=== PATIENT | female | born 1990 ===

== ENCOUNTER 2021-06-11 12:55 | Emergency (ER) | payer MEDICAID ==
[~2021-06-11] VITALS: Ht 1684 cm; Wt 54.0 kg
--- NOTE | 2021-06-11 13:14 | NUR ---
at bedside for assessment
[2021-06-11] MEDS ORDERED: LIDOCAINE VISCUS 2% 15 ML UDC MM ONE (13:15)
[2021-06-11] MEDS ORDERED: MAG HYDROX/AL HYDROX/SIMETH 30 ML LIQUID UDC PO ONE (13:15)
[2021-06-11] MEDS ORDERED: ONDANSETRON ODT 4 MG TAB.RAPDIS SL ONE (13:15)
[2021-06-11] MEDS ORDERED: FAMOTIDINE 20 MG TABLET PO ONE (13:15)
[2021-06-11] MEDS ORDERED: FAMOTIDINE 20 MG TABLET ONE (13:27)
[2021-06-11] MEDS ORDERED: ONDANSETRON ODT 4 MG TAB.RAPDIS ONE (13:27)
[2021-06-11] MEDS ORDERED: MAG HYDROX/AL HYDROX/SIMETH 30 ML LIQUID UDC ONE (13:27)
[2021-06-11] MEDS ORDERED: LIDOCAINE VISCUS 2% 15 ML UDC ONE (13:28)
--- NOTE | 2021-06-11 13:32 | NUR ---
urine sent to lab at this time
[2021-06-11 13:38] LABS: *BILIRUBIN,URIN NEGATIVE (NEGATIVE); *BLOOD, URINE NEGATIVE (NEGATIVE); *CLARITY,URINE CLEAR (CLEAR); *COLOR,URINE YELLOW (YELLOW); *KETONES,URINE NEGATIVE (NEGATIVE); *UROBILINOGEN,URINE 0.2 E.U./dl (NORMAL); LEUKOCYTE ESTERASE ,URINE NEGATIVE (NEGATIVE); NITRITE, URINE NEGATIVE (NEGATIVE); UGLUCOSE NEGATIVE (NEGATIVE)
[2021-06-11 13:41] LABS: HEMATOCRIT 38.3 % (31.2-41.9); MEAN CORPUSCULAR HEMOGLOBIN 31.1 uug (24.7-32.8); MEAN CORPUSCULAR VOLUME 91.8 fL (75.5-95.3); PLATELET COUNT (AUTO) 306 K/uL (179-408)
[2021-06-11 13:43] LABS: MAGNESIUM 1.8 mg/dL (1.8-2.4); PHOSPHOROUS 2.7 mg/dL (2.5-4.9)
[2021-06-11 13:45] LABS: BILIRUBIN,DIRECT 0.2 mg/dL (0.0-0.2); BILIRUBIN,TOTAL 0.5 mg/dL (0.2-1.0); CREATININE 0.7 mg/dL (0.6-1.3); POTASSIUM 4.5 mmol/L (3.5-5.1); TOTAL PROTEIN, SERUM 7.2 g/dL (6.4-8.2)
[2021-06-11 13:46] LABS: ETHANOL < 3 MG/DL (0-0)
[2021-06-11 13:49] LABS: *URINE HCG, QUAL NEG (NEGATIVE)
[2021-06-11 13:50] LABS: *AMPHETAMINE, URINE NEGATIVE (NEGATIVE); *CANNABINOID, URINE POSITIVE (NEGATIVE); *COCCAINE, URINE NEGATIVE (NEGATIVE); *OPIATE, URINE NEGATIVE (NEGATIVE); *PHENCYCLIDINE SCREEN,URINE NEGATIVE (NEGATIVE)
[2021-06-11] MEDS ORDERED: OMEP40CA21 PO (15:35)
[2021-06-11] MEDS ORDERED: FAMO40TA7 PO (15:35)
[2021-06-11] MEDS ORDERED: ONDA4TAB11 PO (15:35)
--- NOTE | 2021-06-11 15:53 | NUR ---
Patient discharged to home in stable condition. Patient states she feels better, dinner tray given. Written and verbal after care instructions given. Patient verbalizes understanding of instructions. Stressed follow up or return to ER for worsening s/s.
[2021-06-11 16:01] VITALS: BP 103/70
== END 2021-06-11 15:55 | disposition home or self-care (01) ==
LOC: ER 12:55
DX: R10.9 Unspecified abdominal pain (principal); M54.9 Dorsalgia, unspecified; F12.20 Cannabis dependence, uncomplicated; F15.10 Other stimulant abuse, uncomplicated; F10.10 Alcohol abuse, uncomplicated; Y90.0 Blood alcohol level of less than 20 mg/100 ml
CPT/HCPCS: 36415; 83690; 83735; 84100; 84703; 85025; A4663; G0480; Q0162